=== PATIENT | male | born 1985 | race Caucasian/White ===

== ENCOUNTER → 2019-06-07 | Outpatient (CLI) | payer MEDICARE ==
[2019-06-08 11:21] LABS: Hemoglobin A1C 5.8 % (4.0-6.0)
[2019-06-08 12:17] LABS: African American GFR (CKD) 111.7 (60.0-200.0); Chol/HDL Ratio 3.98; Lithium 0.6 mmol/L (0.5-1.2); Non-African American GFR(CKD) 96.4 (60.0-200.0); T4, Free (Free Thyroxine) 0.2 ng/dL (0.80-1.80)
== END | disposition home or self-care (01) ==
LOC: LABMAIN 08:16
PROVIDERS: ATTEND Psychiatry & Neurology Psychiatry
DX: Z51.81 Encounter for therapeutic drug level monitoring (principal); Z79.899 Other long term (current) drug therapy
CPT/HCPCS: 36415; 80061; 80178; 82565; 82947; 83036; 84439; 84443; 84520